=== PATIENT | female | born 1990 | race Caucasian/White ===

== ENCOUNTER 2018-05-06 12:37 | Outpatient (CLI) ==
--- NOTE | 2018-05-09 11:45 | HOLTER ---
PATIENT INFORMATION AND COMMENTS Attending Physician: DR. MATEO ALFRDE Indications: PALPITATIONS __ Patient Medications: PRE BHARGAVI VITAMINS __ Pre-procedure Summary: Protocol: Standard Heart Rate Started: 05/06/18 1312 Minimum: 71 BPM Weight: 187 LBS Ended: 05/07/18 1312 Maximum: 159 BPM Height: 62" Duration: 24 HOURS Average: 102 BPM _ INTERPRETATIONS/OBSERVATIONS: 1. BASIC RHYTHM: SINUS, RATE 70 BPM TO 150 BPM, AVERAGE 100 BPM 2. RARE PAC'S AND PVC'S 3. NO ST-T WAVE CHANGES FROM BASELINE 4. ACTIVITY LOG --NO CORRELATION MTDD
== END 2018-05-06 12:38 | disposition home or self-care (01) ==
LOC: CAR 12:37 → EDBD 13:00
PROVIDERS: ATTEND Internal Medicine
DX: R00.2 Palpitations (principal)
CPT/HCPCS: 93227

== ENCOUNTER 2018-05-09 06:51 | Outpatient (CLI) ==
--- NOTE | 2018-05-13 09:25 | ECHO2D ---
Date of Exam: 05/09/18 Ordering Physician: DR. MATEO ALFRED Room #: OP Reason for Echo: PALPITATIONS M-Mode Normal Adult Results LV Dimensions Normal Adult Results AoV Opening excursions >1.6 >1.6 LVEDD-base- 3.5-5.8 4.7 Ao root dimensions 2.0-3.7 2.9 LVESD-base- 3.1-4.6 L. Atrium dimensions 1.9-3.8 3.7 Post. Wall thickness 0.8-1.1 1.1 IV septum (thickness) 0.7-1.2 1.1 Post. Wall excursion 0.72-1.3 Septal motion NORMAL Systolic motion R. Ventricular cavity 1.5-2.0 NORMAL LVEF 60% 59% Paradoxical septal wall motion NORMAL 2-D : 2-D M Mode Echocardiogram was performed using apical four chamber and left parasternal long and short axis views. Mitral, tricuspid and aortic valves appear to be normal. Contractility of the left ventricle seems to be normal, so is the cavity size. Left atrial cavity size and aortic root appear to be normal. There is no pericardial effusion. There is no thrombus noted in the left ventricular or left aortic cavity. No mitral valve prolapse noted. COLOR FLOW: TRIVIAL AORTIC REGURGITATION AND MITRAL REGURGITATION, MODERATE TRICUSPID REGURGITATION M-MODE: MV: NORMAL AV: NORMAL TV: NORMAL PV: CHAMBER SIZE: NORMAL WALL MOTION: NORMAL PERICARDIUM: NORMAL INTERPRETATION: 1. NORMAL 2 "D" "M" MODE ECHO 2. NO PARADOXICAL SEPTAL WALL MOTION 3. MODERATE TRICUSPID REGURGITATION/ TRIVIAL MITRAL REGURGITATION AND AORTIC REGURGITATION MTDD
== END 2018-05-09 06:52 | disposition home or self-care (01) ==
LOC: CAR 06:51
PROVIDERS: ATTEND Internal Medicine
DX: R00.2 Palpitations (principal)

== ENCOUNTER 2018-05-22 08:52 | Outpatient (CLI) ==
[2018-05-23 17:35] VITALS: BMI 29.2
== END 2018-05-22 08:53 | disposition home or self-care (01) ==
LOC: CAR 08:52
PROVIDERS: ATTEND Internal Medicine
DX: R00.2 Palpitations (principal); I07.1 Rheumatic tricuspid insufficiency

== ENCOUNTER 2018-05-23 17:31 | Emergency (ER) ==
[2018-05-23 17:35] VITALS: BP 122/84; TEMP 96.8; BMI 29.2
--- NOTE | 2018-05-23 18:37 | ED.PDOC ---
General ED Provider: Dr. NANCY BARNARD Chief Complaint: Stated Complaint: I have not felt my baby move X 24 hrs. Normally feels fetus move daily. Denies uterine contractions ; Denies urinary symptoms. Time Seen by Physician: 17:55 (FHT noted at 160/noted active movement) Mode of Arrival: Walk-In Information Source: Patient Exam Limitations: No limitations Nursing and Triage Documentation Reviewed and Agree: Yes Does patient meet sepsis criteria?: No System Inflammatory Response Syndrome: Not Applicable Sepsis Protocol: For patient's 13 years and over: Temp is 96.8 and below OR 101 and greater Pulse >90 BPM Resp >20/minute Acutely Altered Mental Status Are patient's symptoms suggestive of a new infection, such as: -Pneumonia -Skin, Soft Tissue -Endocarditis -UTI -Bone, Joint Infection -Implantable Device -Acute Abdominal Infection -Wound Infection -Meningitis -Blood Stream Catheter Infection -Unknown 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 Complaint Exam - Labor/Delivery Complaint/Exam Onset/Duration: 24 hr Symptoms Are: Still present (lack of movement) Contractions Regular: No Associated Signs and Symptoms: Denies: Vomiting, Diarrhea, Fever, Meconium, Gestational Hypertension, Gestational Diabetes, Pre-Eclampsia Vaginal Bleeding: None Expected Date of Delivery: 08/16/18 Prior History: Reports: None Related Surgical History: None Uterine Size: Weeks (20) Review of Systems - Review Of Systems Constitutional: Reports: No symptoms Eyes: Reports: No symptoms Ears, Nose, Mouth, Throat: Reports: No symptoms Respiratory: Reports: No symptoms Cardiac: Reports: No symptoms GI: Reports: No symptoms : Reports: No symptoms Musculoskeletal: Reports: No symptoms Skin: Reports: No symptoms Neurological: Reports: No symptoms Endocrine: Reports: No symptoms Hematologic/Lymphatic: Reports: No symptoms All Other Systems: Reviewed and Negative Past Medical History - Past Medical History Previously Healthy: Yes Endocrine: Reports: None Cardiovascular: Reports: None Respiratory: Reports: None Hematological: Reports: None Gastrointestinal: Reports: None Genitourinary: Reports: None Neuro/Psych: Reports: None Musculoskeletal: Reports: None Cancer: Reports: None Last Menstrual Period: 11/08/17 - Surgical History General Surgical History: Reports: None - Family History Family History: Reports: None - Social History Smoking Status: Never smoker Hx Substance Use: No Alcohol Screening: None - Immunizations Tetanus Shot up to Date: Yes Physical Exam - Physical Exam Appearance: Well-appearing, No pain distress, Well-nourished Eyes: IVORY, EOMI, Conjunctiva clear ENT: Ears normal, Nose normal, Oropharynx normal Respiratory: Airway patent, Breath sounds clear, Breath sounds equal, Respirations nonlabored Cardiovascular: RRR, Pulses normal, No rub, No murmur GI/: Soft (Gravid uterus. Palpable active movement noted. FHT per doppler 160 with appropriate acceleration to stimulation . No decelerations noted with asultation for 4- 5 minutes), Nontender, No masses, Bowel sounds normal, No Organomegaly Musculoskeletal: Normal strength, ROM intact, No edema, No calf tenderness Skin: Warm, Dry, Normal color Neurological: Sensation intact, Motor intact, Reflexes intact, Cranial nerves intact, Alert, Oriented Psychiatric: Affect appropriate, Mood appropriate Critical Care Note - Critical Care Note Total Time (mins): 0 Course - Course Vital Signs: Temp Pulse Resp BP Pulse Ox 05/23/18 17:32 96.8 F L 99 H 20 122/84 98 Departure - Departure Time of Disposition: 18:35 Disposition: HOME SELF-CARE Discharge Problem: Instructions: (ED) Condition: Good Pt referred to PMD for follow-up: Yes (Call our OB tomorrow to inform of ER visit a) IPMP verified?: No Additional Instructions: Continue monitoring movement daily If noted decrease movement again as discussed contact your OB in [place] and go to [facility] Return her as needed Allergies/Adverse Reactions: Allergies codeine Adverse Reaction (Verified 05/23/18 17:35) Home Medications: Ambulatory Orders 1 [No Reported Medications] 05/23/18 Disposition Discussed With: Patient
== END 2018-05-23 18:44 | disposition home or self-care (01) ==
LOC: ED 17:31
DX: O36.8190 Decreased fetal movements, unspecified trimester, not applicable or unspecified (principal)
CPT/HCPCS: 99282

== ENCOUNTER 2018-07-04 08:58 | Outpatient (CLI) | payer OTHER ==
--- NOTE | 2018-07-08 11:46 | HOLTER ---
PATIENT INFORMATION AND COMMENTS Attending Physician: 07/04/18926 Indications: PALPITATIONS __ Patient Medications: VITAMINS __ Pre-procedure Summary: Protocol: Standard Heart Rate Started: 07/04/18926 Minimum: 71 BPM Weight: 195 LBS Ended: 07/05/18926 Maximum: 148 BPM Height: 62" Duration: 24 HOURS Average: 100 BPM _ INTERPRETATIONS/OBSERVATIONS: 1. BASIC RHYTHM: SINUS RATE, 70 BPM TO 150 BPM, AVERAGE 100 BPM 2. RARE PVC'S AND NO PAC'S 3. NO ST-T WAVE CHANGES FROM BASELINE 4. NO CORRELATION WITH ACTIVITY LOG MTDD
== END 2018-07-04 08:59 | disposition home or self-care (01) ==
LOC: CAR 08:58
PROVIDERS: ATTEND Internal Medicine
DX: R00.2 Palpitations (principal)
CPT/HCPCS: 93005; 93010; 93227